=== PATIENT | male | born 1975 | race Caucasian/White ===

== ENCOUNTER 2017-03-22 12:02 | Inpatient (IN) | payer OTHER ==
[2017-03-22] MEDS ORDERED: ACETAMINOPHEN 325 MG TABLET (FP) PO ONE (12:28)
[2017-03-22] MEDS ORDERED: SODIUM CHLORIDE 1,000 ML IV STA (12:28)
--- NOTE | 2017-03-22 12:35 | PDOC ---
History of Present Illness - General Chief Complaint: SIRS, Suspected/Possible Stated Complaint: LAB VARIANCE Time Seen by Provider: 03/22/17 12:10 History Source: Patient - History of Present Illness Timing/Duration: other (2 days ago) Associated Symptoms: reports: fever/chills, malaise, weakness. denies: chest pain, cough, diaphoresis, headaches, nausea/vomiting, rash, shortness of breath Past History - Past Medical History Allergies/Adverse Reactions: Allergies Allergy/AdvReac Type Severity Reaction Status Date / Time piperacillin sodium Allergy Verified 03/22/17 12:06 [From Zosyn] tazobactam sodium Allergy Verified 03/22/17 12:06 [From Zosyn] Home Medications: Ambulatory Orders Levothyroxine [Synthroid -] 125 mcg PO DAILY 03/22/17 Thyroid Disease: Yes - Psycho/Social/Smoking Cessation Hx Anxiety: No Suicidal Ideation: No Smoking History: Never smoked Have you smoked in the past 12 months: No Number of Cigarettes Smoked Daily: 0 Hx Alcohol Use: No Drug/Substance Use Hx: No Substance Use Type: None Hx Substance Use Treatment: No Review of Systems - Review of Systems Constitutional: Yes: Chills, Fever, Malaise HEENTM: No: Difficulty Swallowing Respiratory: No: Shortness of Breath Cardiac (ROS): No: Chest Pain ABD/GI: No: Diarrhea, Nausea, Vomiting : No: Dysuria Neurological: No: Headache, Dizziness *Physical Exam - Vital Signs Last Vital Signs Temp Pulse Resp BP Pulse Ox 99.0 F 126 H 20 152/97 99 03/22/17 12:03 03/22/17 12:03 03/22/17 12:03 03/22/17 12:03 03/22/17 12:03 - Physical Exam General Appearance: Yes: Appropriately Dressed. No: Apparent Distress HEENT: positive: Normal ENT Inspection, Normal Voice, Pharynx Normal. negative : Scleral Icterus (R), Scleral Icterus (L) Neck: positive: Supple. negative: Lymphadenopathy (R), Lymphadenopathy (L) Respiratory/Chest: positive: Normal Breath Sounds. negative: Respiratory Distress Cardiovascular: positive: Regular Rate, S1, S2 Gastrointestinal/Abdominal: positive: Soft. negative: Tender Musculoskeletal: negative: CVA Tenderness Extremity: positive: Normal Inspection Integumentary: positive: Dry, Warm Neurologic: positive: Fully Oriented, Alert, Normal Mood/Affect Heart Score/ECG Review - ECG Intrepretation Comment:: 03/22/17 14:21 sinus tach @ 107bpm ED Treatment Course - LABORATORY CBC & Chemistry Diagram: 03/22/17 12:30 03/22/17 12:30 - RADIOLOGY Radiology Studies Ordered: Category Date Time Status CHEST X-RAY PORTABLE* [RAD] Stat Radiology 03/22/17 12:27 Ordered Medical Decision Making - Medical Decision Making 03/22/17 12:32 41-year-old male history of hyperthyroidism (on levothyroxine now, taken off methimazole 2/ pancytopenia/agranulocytosis, f/u with outside print binding and finishing worker- Dr Reaves [phone]), presents with malaise with generalized weakness and low -grade temperature 2 days. States son and daughter with similar symptoms at home that is resolving. Patient denies any body aches, cough, sore throat, ear pain, headache, dizziness, neck stiffness, photophobia, abdominal pain, GI symptoms, fever or chills. No recent travel. Has not taken anything for symptoms See exam Possibly viral syndrome A bit early for influenza though not impossible Tachy to 120s w/ low grade fever and maintaining BP, doubt septic at this time as well maximilian otherwise -tylenol -IVF -labs -CXR -reassess 03/22/17 12:50 03/22/17 13:07 03/22/17 13:16 03/22/17 13:16 Pt significantly pancytopenic w/ wbc of 2, hgb of 6.8 and plts in the 80s w/ elevated LFTs. Of note, patient was admitted for similar clinical picture 2013 and was evaluated by endocrine who thought methimazole was causing pancytopenia at that time. Pt was taken of methimazole, tx w/ broad spectrum IV abx, steroids and had significant low B12 levels repleted. Patient underwent imaging including ultrasound, which only showed enlarged spleen. Heme was c/s at time and delonte recs to replete B12 levels. Patient currently on levothyroxine. I contacted patient's outside print binding and finishing worker, Dr. Reaves at number given and left message for M.D. to call back. At this time, will call in -house print binding and finishing worker, ID and oncology for recommendations and admit. 03/22/17 13:19 03/22/17 13:45 At this time pt c/o chills. Based on chart review and ID recs in the past for similar clinic picture, will give levaquin/doxy/aztrenam for neutropenic fever given drug allergies. Of note all blood/peripheral cxs all negative in 201303/22/17 14:16 Case d/w Dr Chakraborty of oncology, recommending additional labs and crowell scan r/o malignancy. Also recommends transfusing pt 2 units of PRBCs. Will come see pt in the ED 03/22/17 14:21 Case d/w Dr Moctezuma of endocrine and made aware of thyroid tests-TSH 0.31, Free T4 1.55, no recommendation at this time, will follow as consult. Dr Reaves' s CASE ASSEMBLER also made aware of admission. 03/22/17 14:25 03/22/17 14:55 03/22/17 14:55 03/22/17 15:09 Dr Chakraborty now at bedside and made recs in consult note including additional labs and colonoscopy (pt has fmhx of colon ca). States pt will m/l need a bone marrow bx if inhouse w/u does not reveal diagnosis. States Dr Cary will see pt inhouse on Friday. Will inform admitting team as [facility] orders/notes 03/22/17 15:26 Dr Reaves returned call and informed of pt's condition. States pt was treated w / radioactive iodine and then subsequently put on levothyroxine. Agrees w/ w/u and admission. 03/22/17 15:47 Pending callback from hospitalist to admit pt. ID has not returned call as of yet 03/22/17 16:34 Pt admitted to hospitalist service. At this time, ID has not returned call. 03/22/17 16:35 *DC/Admit/Observation/Transfer Diagnosis at time of Disposition: Pancytopenia with fever - Discharge Dispostion Condition at time of disposition: Fair Admit: Yes - Referrals Referrals: Venu Florentino [Primary Care Provider] -
[2017-03-22] MEDS ORDERED: ACETAMINOPHEN 325 MG TABLET (FP) ONE (12:50)
[2017-03-22 12:52] LABS: BASOPHIL 0.4 % (0-2.0); EOSINOPHIL 0.8 % (0-4.5); MCH 38.1 pg (25.7-33.7); MCHC 35.8 g/dl (32.0-35.9); MEAN CELL VOLUME 106.5 fl (80-96); MEAN PLT VOLUME 9.6 fl (7.5-11.1); NEUTROPHILS 74.2 % (42.8-82.8); RDW 15.4 % (11.9-15.9)
[2017-03-22 13:06] LABS: ALBUMIN 4.7 g/dl (3.4-5.0); ANION GAP 12 (8-16); BILIRUBIN,TOTAL 3.9 mg/dL (0.2-1.0); CALCIUM 8.5 mg/dL (8.5-10.1); CO2 26 mmol/L (21-32); CREATININE 1.1 mg/dL (0.7-1.3); GLUCOSE,RANDOM 125 mg/dL (74-106); SGPT/ALT 120 U/L (12-78); TOT PROT 7.2 g/dl (6.4-8.2)
[2017-03-22 13:07] LABS: ALK PHOS 43 U/L (45-117)
[2017-03-22 13:08] LABS: SGOT/AST 325 U/L (15-37)
[2017-03-22 13:18] LABS: FREE T4 1.55 ng/dl (0.76-1.16); THYROID STIMULATING HORMONE 0.44 uIU/ml (0.358-3.74)
[2017-03-22 13:19] LABS: HIV 1 & 2 AB NEGATIVE; HIV 1 AGp24 NEGATIVE
[2017-03-22] MEDS ORDERED: LEVOFLOXACIN 750 MG IVPB 150 ML IVPB ONE ×3 (13:47→13:54)
[2017-03-22] MEDS ORDERED: DOXYCYCLINE INJECTION 100 MG in DEXTROSE 5%-WATER - 100 ML IVPB ONE (13:50)
[2017-03-22] MEDS ORDERED: AZTREONAM 2 GM in DEXTROSE 5%-WATER - 100 ML IV ONE (13:50)
[2017-03-22] MEDS ORDERED: DOXYCYCLINE HYCLATE 100 MG VIAL ONE (14:01)
[2017-03-22 14:51] LABS: ANISOCYTOSIS 3+; HYPOCHROMIA 2+; MACROCYTOSIS 1+; MICROCYTOSIS 2+; PLATELET COMMENT2 NO CLOTTING DETECTED; PLATELET COUNT 85 K/MM3 (134-434); TEAR DROP CELLS 2+
[2017-03-22 15:21] LABS: INR 1.19 (0.82-1.09); PROTHROMBIN TIME (PATIENT) 13.1 SEC (9.98-11.88)
--- NOTE | 2017-03-22 16:58 | HP ---
CHIEF COMPLAINT: Malaise, generalized weakness and low grade temps x 2 days. 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 Pt was treated w/ radioactive iodine and then subsequently put on levothyroxine. He follows Dr. Reaves as an outpatient. He was recently on methimazole but it was discontinued for pancytopenia and agranulocytosis. He presents to the ED with malaise with generalized weakness and low-grade temperature 2 days. States son and daughter with similar symptoms at home that is resolving. Patient denies any body aches, cough, sore throat, ear pain, headache, dizziness , neck stiffness, photophobia, abdominal pain, GI symptoms, fever or chills. No recent travel. ER course was notable for: (1) WBC 2.0, hmg 6.8, hct 18.9, platelets 85, bili 3.9, AST 325, ALT 120, LD 7626, TSH 0.31 (2) 2 units of PRBC ordered (3) Recent Travel: denies PAST MEDICAL HISTORY: hyperthyroidism PAST SURGICAL HISTORY: Social History: Smoking: Alcohol: Drugs: Family History: Allergies piperacillin sodium [From Zosyn] Allergy (Verified 03/22/17 12:06) tazobactam sodium [From Zosyn] Allergy (Verified 03/22/17 12:06) HOME MEDICATIONS: Home Medications Medication Instructions Recorded Levothyroxine [Synthroid -] 125 mcg PO DAILY 03/22/17 REVIEW OF SYSTEMS CONSTITUTIONAL: Absent: diaphoresis, generalized weakness, malaise, loss of appetite, weight change HEENT: Absent: rhinorrhea, nasal congestion, throat pain, throat swelling, difficulty swallowing, mouth swelling, ear pain, eye pain, visual changes CARDIOVASCULAR: Absent: chest pain, syncope, palpitations, irregular heart rate, lightheadedness , peripheral edema RESPIRATORY: Absent: cough, shortness of breath, dyspnea with exertion, orthopnea, wheezing, stridor, hemoptysis GASTROINTESTINAL: Absent: abdominal pain, abdominal distension, nausea, vomiting, diarrhea, constipation, melena, hematochezia GENITOURINARY: Absent: dysuria, frequency, urgency, hesitancy, hematuria, flank pain, genital pain MUSCULOSKELETAL: Absent: myalgia, arthralgia, joint swelling, back pain, neck pain SKIN: Absent: rash, itching, pallor HEMATOLOGIC/IMMUNOLOGIC: Absent: easy bleeding, easy bruising, lymphadenopathy, frequent infections ENDOCRINE: Absent: unexplained weight gain, unexplained weight loss, heat intolerance, cold intolerance NEUROLOGIC: Absent: headache, focal weakness or paresthesias, dizziness, unsteady gait, seizure, mental status changes, bladder or bowel incontinence PSYCHIATRIC: Absent: anxiety, depression, suicidal or homicidal ideation, hallucinations. PHYSICAL EXAMINATION Vital Signs - 24 hr 03/22/17 03/22/17 03/22/17 12:03 13:01 13:34 Temperature 99.0 F Pulse Rate 126 H 112 H Pulse Rate [ 112 H Apical] Respiratory 20 16 Rate Blood Pressure 152/97 Blood Pressure 130/79 [Right] O2 Sat by Pulse 99 96 96 Oximetry (%) GENERAL: Awake, alert, and fully oriented, in no acute distress. HEAD: Normal with no signs of trauma. EYES: Pupils equal, round and reactive to light, extraocular movements intact, sclera anicteric, conjunctiva clear. No lid lag. EARS, NOSE, THROAT: Ears normal, nares patent, oropharynx clear without exudates. Moist mucous membranes. NECK: Normal range of motion, supple without lymphadenopathy, JVD, or masses. LUNGS: Breath sounds equal, clear to auscultation bilaterally. No wheezes, and no crackles. No accessory muscle use. HEART: Regular rate and rhythm, normal S1 and S2 without murmur, rub or gallop. ABDOMEN: Soft, nontender, not distended, normoactive bowel sounds, no guarding, no rebound, no masses. No hepatomegaly or splenomegaly. MUSCULOSKELETAL: Normal range of motion at all joints. No bony deformities or tenderness. No CVA tenderness. UPPER EXTREMITIES: 2+ pulses, warm, well-perfused. No cyanosis. No clubbing. No peripheral edema. LOWER EXTREMITIES: 2+ pulses, warm, well-perfused. No calf tenderness. No peripheral edema. NEUROLOGICAL: Normal speech. Normal gait. PSYCHIATRIC: Cooperative. Good eye contact. Appropriate mood and affect. SKIN: Warm, dry, normal turgor, no rashes or lesions noted, normal capillary refill. Laboratory Results - last 24 hr 03/22/17 03/22/17 03/22/17 12:30 12:30 12:30 WBC 2.0 L RBC 1.78 L D Hgb 6.8 L* D Hct 18.9 L D MCV 106.5 H MCH 38.1 H MCHC 35.8 RDW 15.4 D Plt Count 85 L D MPV 9.6 D Neutrophils % 74.2 D Lymphocytes % 21.9 D Monocytes % 2.7 L Eosinophils % 0.8 D Basophils % 0.4 D Hypochromia 2+ Platelet Comment No clotting detected Anisocytosis 3+ Microcytosis 2+ Macrocytosis 1+ Tear Drop Cells 2+ Fragmented RBCs Few Retic Count INR Fibrinogen Sodium 138 Potassium 4.5 D Chloride 100 Carbon Dioxide 26 Anion Gap 12 BUN 9 D Creatinine 1.1 D Creat Clearance w eGFR > 60 Random Glucose 125 H D Lactic Acid Calcium 8.5 Total Bilirubin 3.9 H D AST 325 H D ALT 120 H D Alkaline Phosphatase 43 L D LD Total Total Protein 7.2 D Albumin 4.7 D TSH 0.44 Cancelled Free T4 1.55 H HIV 1&2 Antibody Screen HIV P24 Antigen Blood Type Antibody Screen Crossmatch Spec Expiration Date 03/22/17 03/22/17 03/22/17 12:30 12:30 12:30 WBC RBC Hgb Hct MCV MCH MCHC RDW Plt Count MPV Neutrophils % Lymphocytes % Monocytes % Eosinophils % Basophils % Hypochromia Platelet Comment Anisocytosis Microcytosis Macrocytosis Tear Drop Cells Fragmented RBCs Retic Count 1.60 H INR Fibrinogen Sodium Potassium Chloride Carbon Dioxide Anion Gap BUN Creatinine Creat Clearance w eGFR Random Glucose Lactic Acid Calcium Total Bilirubin AST ALT Alkaline Phosphatase LD Total Total Protein Albumin TSH Free T4 Cancelled HIV 1&2 Antibody Screen Negative HIV P24 Antigen Negative Blood Type Antibody Screen Crossmatch Spec Expiration Date 03/22/17 03/22/17 03/22/17 12:35 13:30 13:30 WBC RBC Hgb Hct MCV MCH MCHC RDW Plt Count MPV Neutrophils % Lymphocytes % Monocytes % Eosinophils % Basophils % Hypochromia Platelet Comment Anisocytosis Microcytosis Macrocytosis Tear Drop Cells Fragmented RBCs Retic Count INR Fibrinogen Sodium Potassium Chloride Carbon Dioxide Anion Gap BUN Creatinine Creat Clearance w eGFR Random Glucose Lactic Acid 0.7 Calcium Total Bilirubin AST ALT Alkaline Phosphatase LD Total Total Protein Albumin TSH 0.31 L D Free T4 HIV 1&2 Antibody Screen HIV P24 Antigen Blood Type B POSITIVE Antibody Screen Negative Crossmatch See Detail Spec Expiration Date 09/03/3003/22/17 03/22/17 14:50 14:50 14:50 WBC RBC Hgb Hct MCV MCH MCHC RDW Plt Count MPV Neutrophils % Lymphocytes % Monocytes % Eosinophils % Basophils % Hypochromia Platelet Comment Anisocytosis Microcytosis Macrocytosis Tear Drop Cells Fragmented RBCs Retic Count INR 1.19 H Fibrinogen 223.0 L Sodium Potassium Chloride Carbon Dioxide Anion Gap BUN Creatinine Creat Clearance w eGFR Random Glucose Lactic Acid Calcium Total Bilirubin AST ALT Alkaline Phosphatase LD Total 7626 H Total Protein Albumin TSH Free T4 HIV 1&2 Antibody Screen HIV P24 Antigen Blood Type Antibody Screen Crossmatch Spec Expiration Date 03/22/17 15:21 WBC RBC Hgb Hct MCV MCH MCHC RDW Plt Count MPV Neutrophils % Lymphocytes % Monocytes % Eosinophils % Basophils % Hypochromia Platelet Comment Anisocytosis Microcytosis Macrocytosis Tear Drop Cells Fragmented RBCs Retic Count INR Fibrinogen Sodium Potassium Chloride Carbon Dioxide Anion Gap BUN Creatinine Creat Clearance w eGFR Random Glucose Lactic Acid Calcium Total Bilirubin AST ALT Alkaline Phosphatase LD Total Total Protein Albumin TSH Free T4 HIV 1&2 Antibody Screen HIV P24 Antigen Blood Type B POSITIVE Antibody Screen Cancelled Crossmatch Spec Expiration Date Cancelled ASSESSMENT/PLAN: Patient is a 41 year old male with a significant past medical history of hyperthyroidism. Pt was treated w/ radioactive iodine and then subsequently put on levothyroxine. He follows Dr. Reaves as an outpatient. He was recently on methimazole but it was discontinued for pancytopenia and agranulocytosis. He presents to the ED with malaise with generalized weakness and low-grade temperature 2 days. States son and daughter with similar symptoms at home that is resolving. Patient was admitted for similar clinical picture in 2013 and was evaluated by endocrine who thought methimazole was causing pancytopenia at that time. Methiamazonle was d/c and pt was started on Synthroid. Patient denies any body aches, cough, sore throat, ear pain, headache, dizziness , neck stiffness, photophobia, abdominal pain, GI symptoms, fever or chills. No recent travel. Chest xray: no acute pathology Hematology: Neutropenia/Pancytopenia/Anemia - unknown etiology A/P: Patient significantly pancytopenic with WBC of 2, hmg of 6.8 and platelets of 80 Given levaquin/doxy/aztrenam for neutropenic fever given drug allergies of Zosyn Blood cultures, urine cultures ID consulted for further antibiotic therapy Oncology/hematology consulted B12, folate levels, tibc, vane, hep panal, cmv, blood parasites, babesia and anaplasma ordered Neutropenic precautions, bleeding precautions 2 units of prbc ordered - 1 unit of prbc started infusing at 7p, 2nd unit ordered, will repeat CBC in a.m. Chest ct ordered, abdomen and pelvic ct pending GI: Elevated Liver Enzymes A/P: CT scan of abd pending Hepatitis panel F.E.N. Fluids: NS @ 100cc/hr Electrolytes: monitor Nutrition: neutropenic diet Prophylaxis: GI: deferred DVT: low h/h, no anticoag, SCDs Visit type - Emergency Visit Emergency Visit: Yes ED Registration Date: 03/22/17 Care time: The patient presented to the Emergency Department on the above date and was hospitalized for further evaluation of their emergent condition. - New Patient This patient is new to me today: Yes Date on this admission: 03/23/17 - Critical Care Critical Care patient: No
[2017-03-22 20:14] LABS: INR 1.01 (0.82-1.09); PROTHROMBIN TIME (PATIENT) 11.1 SEC (9.98-11.88)
[2017-03-22 20:41] VITALS: BMI 28.9
[2017-03-22 22:31] LABS: PH,URINE 5.5 (5.0-8.0); URINE APPEARANCE CLEAR; URINE BILIRUBIN NEGATIVE (NEGATIVE); URINE BLOOD 1+ (NEGATIVE); URINE COLOR LT. YELLOW; URINE GLUCOSE (UA) NEGATIVE (NEGATIVE); URINE KETONE NEGATIVE (NEGATIVE); URINE LEUK ESTERASE NEGATIVE (NEGATIVE); URINE NITRITE NEGATIVE (NEGATIVE); URINE PROTEIN NEGATIVE (NEGATIVE); URINE UROBILINOGEN 4.0 E.U/dl mg/dL (0.2-1.0)
[2017-03-22 22:43] LABS: URINE BACTERIA FEW /hpf (NONE SEEN); URINE RBC <1 /hpf (0-3); URINE WBC 1 /hpf (3-5)
[2017-03-23 01:07] LABS: MCH 37.8 pg (25.7-33.7); MCHC 35.9 g/dl (32.0-35.9); MEAN CELL VOLUME 105.2 fl (80-96); MEAN PLT VOLUME 11.6 fl (7.5-11.1); PLATELET COUNT 76 K/MM3 (134-434); RDW 19.3 % (11.9-15.9)
[2017-03-23 01:12] LABS: WHITE BLOOD COUNT 1.2 K/mm3 (4.0-10.0)
[2017-03-23 01:33] LABS: ALBUMIN 3.8 g/dl (3.4-5.0); ANION GAP 7 (8-16); BILIRUBIN,TOTAL 3.4 mg/dL (0.2-1.0); CALCIUM 7.9 mg/dL (8.5-10.1); CO2 29 mmol/L (21-32); GLUCOSE,RANDOM 100 mg/dL (74-106); SGPT/ALT 98 U/L (12-78)
[2017-03-23 01:34] LABS: ALK PHOS 36 U/L (45-117)
[2017-03-23 01:35] LABS: MAGNESIUM 1.9 mg/dL (1.8-2.4); SGOT/AST 273 U/L (15-37)
[2017-03-23 01:52] LABS: PLATELET ESTIMATE MOD DECREASED (NORMAL); TOTAL CELLS COUNTED 100
[2017-03-23 02:33] LABS: FERRITIN 202.268 ng/ml (16.4-293.9)
[2017-03-23 05:33] LABS: BASOPHIL 0.3 % (0-2.0); EOSINOPHIL 1.5 % (0-4.5); MCH 36.7 pg (25.7-33.7); MCHC 35.9 g/dl (32.0-35.9); MEAN CELL VOLUME 102.1 fl (80-96); MEAN PLT VOLUME 10.1 fl (7.5-11.1); NEUTROPHILS 66.7 % (42.8-82.8); PLATELET COUNT 63 K/MM3 (134-434); RDW 22.7 % (11.9-15.9)
[2017-03-23 05:36] LABS: WHITE BLOOD COUNT 1.3 K/mm3 (4.0-10.0)
[2017-03-23 05:47] LABS: PLATELET ESTIMATE MOD DECREASED (NORMAL)
[2017-03-23] MEDS ORDERED: LEVOTHYROXINE NA 125 MCG TABLET (FP) PO SCH (07:00)
--- NOTE | 2017-03-23 09:48 | EKG ---
Test Reason : Blood Pressure : / mmHG Vent. Rate : 107 BPM Atrial Rate : 107 BPM P-R Int : 138 ms QRS Dur : 082 ms QT Int : 356 ms P-R-T Axes : 046 023 021 degrees QTc Int : 475 ms SINUS TACHYCARDIA NONSPECIFIC T WAVE ABNORMALITY ABNORMAL ECG WHEN COMPARED WITH ECG OF 23-JAN-2014 19:52, NONSPECIFIC T WAVE ABNORMALITY NOW EVIDENT IN ANTEROLATERAL LEADS Confirmed by MD NATHALIA, RAMOS ([id number]) on 03/23/2017 9:48:26 AM Referred By: Confirmed By:RAMOS SLOAN MD
[2017-03-23] MEDS ORDERED: LEVOFLOXACIN 750 MG IVPB 150 ML IVPB ONE (10:00)
--- NOTE | 2017-03-23 11:35 | PN ---
Progress Note (short form) - Note Progress Note: Subjective: The patient was seen and examined at the bedside, he reports he came to the ED for weakness and fever, but reports his tmax was 99 at home. He does not report having a temperature higher than that prior to arrival. He reports a decrease in appetite over 2 weeks and 10lb weight loss over 2 weeks. ANC: 867 Current Medications Generic Name Dose Route Start Last Admin Trade Name Freq PRN Reason Stop Dose Admin Cyanocobalamin 1,000 mcg 03/23/17 12:00 Vitamin B12 - PO DAILY AMANDA Levothyroxine Sodium 125 mcg 03/23/17 07:00 03/23/17 06:33 Synthroid - PO 125 mcg DAILY@0700 AMANDA Administration Objective: Vital Signs Period Temp Pulse Resp BP Sys/[place] Pulse Ox Last 24 Hr 98.2 F-99.0 F 104-126 14-20 126-152/76-97 96-100 Physical Exam: General: NAD, A&Ox3, jaundice HEENT: Right eye ptosis and strabismus Lungs: CTA bilaterally Heart: RRR, S1S2, +murmur Abd: Soft, non-tender, non-distended, Normoactive bowel sounds Ext: Warm, well-perfused. 2+ DP/PT bilaterally Lymph: No lymphadenopathy noted CBCD WBC 1.3 K/mm3 (4.0-10.0) L* 03/23/17 05:17 RBC 1.97 M/mm3 (4.00-5.60) L 03/23/17 05:17 Hgb 7.2 GM/dL (11.7-16.9) L D 03/23/17 05:17 Hct 20.1 % (35.4-49) L D 03/23/17 05:17 MCV 102.1 fl (80-96) H 03/23/17 05:17 MCHC 35.9 g/dl (32.0-35.9) 03/23/17 05:17 RDW 22.7 % (11.9-15.9) H D 03/23/17 05:17 Plt Count 63 K/MM3 (134-434) L 03/23/17 05:17 MPV 10.1 fl (7.5-11.1) D 03/23/17 05:17 CMP Sodium 139 mmol/L (136-145) 03/23/17 00:20 Potassium 3.6 mmol/L (3.5-5.1) 03/23/17 00:20 Chloride 103 mmol/L (98-107) 03/23/17 00:20 Carbon Dioxide 29 mmol/L (21-32) 03/23/17 00:20 Anion Gap 7 (8-16) L 03/23/17 00:20 BUN 8 mg/dL (7-18) 03/23/17 00:20 Creatinine 1.0 mg/dL (0.7-1.3) 03/23/17 00:20 Creat Clearance w eGFR > 60 (>60) 03/23/17 00:20 Random Glucose 100 mg/dL (74-106) 03/23/17 00:20 Calcium 7.9 mg/dL (8.5-10.1) L 03/23/17 00:20 Total Bilirubin 3.4 mg/dL (0.2-1.0) H 03/23/17 00:20 AST 273 U/L (15-37) H 03/23/17 00:20 ALT 98 U/L (12-78) H 03/23/17 00:20 Alkaline Phosphatase 36 U/L (45-117) L 03/23/17 00:20 Total Protein 6.0 g/dl (6.4-8.2) L 03/23/17 00:20 Albumin 3.8 g/dl (3.4-5.0) 03/23/17 00:20 Assessment: This is a 41 year old male with PMHx of hyperthyroidism who presented to the ED with weakness, decrease appetite, 10 lb weight loss in 2 weeks. Plan: 1) Hematology: Pancytopenia - Appears patient was here in 2013 with pancytopenia and it was believed to be from Methimazole at that time - Will likely need bone marrow study - Macrocytic anemia 2/2 b12 deficiency - Start Cyanocobalamin 1000mcg IM daily x7 days - Hgb 7.2 s/p 2 u PRBC - Will order 1u PRBC and monitor H/H response - F/u iron studies - Appreciate hematology consult Moderate neutropenia - Idiopathic vs. B12 deficiency vs. infectious - Patient reports child had fever last week which lasted about 2 days - B12 deficiency diagnosed as above - F/u cultures, no evidence of infection now, afebrile, however did receive Levaquin, Doxy, and Aztreonam in the ED - F/u ID consult for possible recommendations re: abx. Received Levaquin this AM. Will hold off on ordering abx for now given the patient has been afebrile and he reports his max temp at home was 99 2) Endocrine: Hyperthyroidism - S/p radioactive iodine, now on synthroid (decrease to 112mcg daily) - TSH 0.31 - T4 within normal range, however appears out of range from our lab standards - Appreciate endocrinology consult 3) GI: Jaundice, elevated bilirubin - F/u liver ultrasound - F/u GI consult 4) F/E/N: - Regular diet - Monitor electrolytes 5) Prophylaxis: - Hold off on chemical DVT prophylaxis given anemia - OOB ambulating 6) Dispo: - Requires continued inpatient care CODE STATUS: FULL CODE Visit type - Emergency Visit Emergency Visit: Yes ED Registration Date: 03/22/17 Care time: The patient presented to the Emergency Department on the above date and was hospitalized for further evaluation of their emergent condition. - New Patient This patient is new to me today: Yes Date on this admission: 03/23/17 - Critical Care Critical Care patient: No
[2017-03-23] MEDS ORDERED: CYANOCOBALAMIN 1,000 MCG TABLET (FP) PO SCH (12:00)
--- NOTE | 2017-03-23 15:44 | PN ---
Progress Note (short form) - Note Progress Note: ID Consult dictated 41 y/o HIV (-) male admitted with pancytopenia. Admitted in 2013 with same; felt to have drug-induced pancytopenia secondary to methimazole. Now with weakness, anorexia, wt loss. No documented fever. + abnormal LFTs with clinical jaundice Denies tick exposure or recent febrile illness Cultures, serologies obtained Observe off antibiotics as long as he remains afebrile Hem/Onc evaluation for bone marrow bx
[2017-03-23] MEDS: CYANOCOBALAMIN (VITAMIN B-12) 1000 MCG/1 ML VIAL IM SCH (18:09)
--- NOTE | 2017-03-23 18:27 | CONSULT ---
Consult Consult Specialty:: endocrine Referred by:: maxwell andres NP Reason for Consultation:: hypothyroidism sp buchanan - History of Present Illness Chief Complaint: weakness,fever History of Present Illness: 41 y male pmh hyperthyroidism,treated with methimazole,and developed pancytopenia in past,subsequently given buchanan 7mcui in 2014,with resulting hypothyroid state,now on synthroid hrt,has had recent fever and flue like syndrome,found to have recurrent pancytopenia which prompted admission. - History Source History Provided By: Patient - Past Medical History Endocrine: Yes: Hyperthyroidism. No: [place]'s Disease, [place]'s Disease, Diabetes Insipidus, Diabetes Mellitus, Hyperparathyroidism, Hypothyroidism, Osteopenia, SIADH, Other Additional Medical History: Hyperthyroid - Past Surgical History Past Surgical History: Yes: Arthrosocopy. No: None, AAA Repair, AICD, Amputation, Appendectomy, AV Fistula/Graft, Bariatric Surgery, Breast Biopsy, Bypass, CABG, Carotid Endarterectomy, Cataract Removal, Cholecystectomy, Colectomy, Colonoscopy, Colostomy, Craniotomy, , Cystectomy, Hernia Repair, Hysterectomy, Ileal Conduit, Ileosotomy, Joint Replacement, Kidney Transplant, Laminectomy, Liver Transplant, Mastectomy, Nephrectomy, Oopherectomy , Orchiectomy, Permanent Pacemaker, Prostatectomy, Splenectomy, Stent, Thoracotomy, TURP, Tonsillectomy, Tubal Ligation, Upper Endoscopy, Valve Replacement, Vasectomy, Vein Stripping/Ligation - Alcohol/Substance Use Hx Alcohol Use: No - Smoking History Smoking history: Never smoked Have you smoked in the past 12 months: No Aproximately how many cigarettes per day: 0 Home Medications - Allergies Allergies/Adverse Reactions: Allergies Allergy/AdvReac Type Severity Reaction Status Date / Time piperacillin sodium Allergy Verified 03/22/17 12:06 [From Zosyn] tazobactam sodium Allergy Verified 03/22/17 12:06 [From Zosyn] - Home Medications Home Medications: Ambulatory Orders Levothyroxine [Synthroid -] 125 mcg PO DAILY 03/22/17 Family Disease History - Family Disease History Family Disease History: Heart Disease: Father ([place] x 2) Review of Systems - Review of Systems Constitutional: reports: Lethargy, Weakness Eyes: reports: Other (exopthalmia) HENT: reports: No Symptoms Neck: reports: No Symptoms Cardiovascular: reports: No Symptoms Respiratory: reports: No Symptoms Gastrointestinal: reports: No Symptoms Genitourinary: reports: No Symptoms Breasts: reports: No Symptoms Reported Musculoskeletal: reports: No Symptoms Integumentary: reports: No Symptoms Neurological: reports: No Symptoms Endocrine: reports: No Symptoms Physical Exam Vital Signs: Vital Signs Temperature 98.8 F 03/23/17 14:26 Pulse Rate 108 H 03/23/17 14:26 Respiratory Rate 18 03/23/17 14:26 Blood Pressure 136/82 03/23/17 14:26 O2 Sat by Pulse Oximetry (%) 97 03/23/17 09:00 Constitutional: Yes: Calm Eyes: Yes: EOM Intact, Other HENT: Yes: Normocephalic Neck: Yes: Trachea Midline Cardiovascular: Yes: Regular Rate and Rhythm Respiratory: Yes: WNL Gastrointestinal: Yes: WNL ...Rectal Exam: Yes: WNL Renal/: Yes: WNL Breast(s): Yes: WNL Musculoskeletal: Yes: WNL Extremities: Yes: WNL Edema: No Integumentary: Yes: WNL Neurological: Yes: Alert, Oriented Labs: CBC, BMP 03/23/17 05:17 03/23/17 00:20 Problem List - Problems (1) Pancytopenia with fever Code(s): D61.818 - OTHER PANCYTOPENIA R50.81 - FEVER PRESENTING WITH CONDITIONS CLASSIFIED ELSEWHERE (2) Abnormal LFTs (liver function tests) Code(s): R79.89 - OTHER SPECIFIED ABNORMAL FINDINGS OF BLOOD CHEMISTRY (3) Flu-like symptoms Code(s): R68.89 - OTHER GENERAL SYMPTOMS AND SIGNS (4) Hyperthyroidism Code(s): E05.90 - THYROTOXICOSIS, UNSP WITHOUT THYROTOXIC CRISIS OR STORM Assessment/Plan Current Active Problems hyperthyroidism,sp buchanan,dose adjustment needed Pancytopenia with fever (Acute) Current Active Problems flue like illness Abnormal Lab Results 03/22/17 03/22/17 03/22/17 13:30 15:21 21:10 WBC RBC Hgb Hct MCV MCH RDW Plt Count MPV Monocytes % (Manual) Anion Gap Calcium Total Bilirubin AST ALT Alkaline Phosphatase Total Protein Vitamin B12 Urine Blood 1+ H Crossmatch See Detail See Detail 03/23/17 03/23/17 03/23/17 00:20 00:20 00:20 WBC 1.2 L* D RBC 1.65 L Hgb 6.2 L* Hct 17.3 L MCV 105.2 H MCH 37.8 H RDW 19.3 H D Plt Count 76 L MPV 11.6 H D Monocytes % (Manual) 1 L Anion Gap 7 L Calcium 7.9 L Total Bilirubin 3.4 H AST 273 H ALT 98 H Alkaline Phosphatase 36 L Total Protein 6.0 L Vitamin B12 64 L Urine Blood Crossmatch 03/23/17 05:17 WBC 1.3 L* RBC 1.97 L Hgb 7.2 L D Hct 20.1 L D MCV 102.1 H MCH 36.7 H RDW 22.7 H D Plt Count 63 L MPV Monocytes % (Manual) Anion Gap Calcium Total Bilirubin AST ALT Alkaline Phosphatase Total Protein Vitamin B12 Urine Blood Crossmatch Laboratory Tests 01/24/14 03/22/17 03/22/17 20:00 12:30 13:30 TSH < 0.03 L* 0.31 L D Free T4 2.28 H* 1.55 H plan: decrease synthoid 112mcg daily
--- NOTE | 2017-03-23 19:22 | CONS ---
DATE OF CONSULTATION: DATE OF DICTATION: 03/23/2017 The patient is a 41-year-old male evaluated for pancytopenia. He presents with complaints of worsening generalized weakness, anorexia, and 10-pound weight loss. He had subjective fever at home, reports his highest temperature was 99. He presented to the emergency room, where he was found to be pancytopenic. In addition, he was noted to have elevated liver enzymes and clinical jaundice. Cultures were obtained. He was empirically treated with Azactam, Levaquin, and doxycycline for febrile neutropenia (he is allergic to ZOSYN). He has had no documented fever while in the hospital. He denies any recent febrile illness. He has been in contact with small children who have had respiratory tract infections. No recent travel. He denies any tick bites. 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 No rash. His HIV test done on and is negative. The patient was hospitalized at [facility] [place] in 2013 with pancytopenia. At that time, he was felt to have a drug-induced pancytopenia secondary to methimazole. He had received radiation therapy and was placed on Synthroid for thyroid disease. It is unclear whether he has had any blood count in the interim. He is unaware of any recent blood work nor was he aware of being informed of an abnormal CBC. Past medical history as above. Allergies to ZOSYN. MEDICATIONS: Synthroid. LABORATORY DATA: White count 1.3, 66 neutrophils, 27 lymphocytes, 3 monocytes. ANC 850. Hematocrit 20.1, platelet count 63, BUN 8, creatinine 1.0, total bilirubin 3.4, alkaline phosphatase 36, AST 273, ALT 98. Urinalysis: 1 white cell. CAT scan of the chest negative for infiltrate, no adenopathy. CAT scan of the abdomen and pelvis: Enlarged spleen. Chest x-ray negative. PHYSICAL EXAMINATION: General: He is awake and alert. He is not acutely toxic appearing. Vital Signs: Temperature 98.8. Blood pressure 136/82. Pulse 108. Respirations 18 per minute. ENT: Sclerae anicteric. Oropharynx negative. Neck: Supple. No palpable nodes. Heart Sounds: S1, S2. Lungs: Clear. Abdomen: Soft. No tenderness elicited. No palpable liver or spleen. Extremities: Negative for edema. IMPRESSION: A 41-year-old male, human immunodeficiency virus negative, admitted with pancytopenia, now with anorexia, weight loss, and weakness. No documented fever. Patient with abnormal liver enzymes, clinical jaundice, and splenomegaly. Etiology of pancytopenia unclear, likely requires a bone marrow aspirate. At the present time, he is afebrile without a clear infectious focus, as long as he remains afebrile will observe off antibiotic therapy. Cultures and tick-related serologies have been ordered as well as CMV serology. Await hematology opinion. Thank you for the kind referral. SUDEEP MINAYA M.D. [id number]
[2017-03-24 06:09] LABS: SERUM IRON 186 ug/dL (38-169); TOTAL IRON BINDING CAPACITY < 203 ug/dL (250-450); UIBC < 17 ug/dL (111-343)
[2017-03-24] MEDS ORDERED: LEVOTHYROXINE NA 112 MCG TABLET (FP) PO SCH (07:00)
[2017-03-24 07:48] LABS: MCH 35.5 pg (25.7-33.7); MCHC 36.4 g/dl (32.0-35.9); MEAN CELL VOLUME 97.5 fl (80-96); MEAN PLT VOLUME 11.1 fl (7.5-11.1); PLATELET COUNT 75 K/MM3 (134-434)
[2017-03-24 08:11] LABS: WHITE BLOOD COUNT 1.5 K/mm3 (4.0-10.0)
[2017-03-24 08:13] LABS: ALBUMIN 3.7 g/dl (3.4-5.0); ANION GAP 9 (8-16); CALCIUM 8.5 mg/dL (8.5-10.1); CO2 26 mmol/L (21-32); GLUCOSE,RANDOM 95 mg/dL (74-106)
[2017-03-24 08:16] LABS: ALK PHOS 33 U/L (45-117); BILIRUBIN,TOTAL 3.9 mg/dL (0.2-1.0); SGPT/ALT 93 U/L (12-78); TOT PROT 6.1 g/dl (6.4-8.2)
[2017-03-24 08:23] LABS: SGOT/AST 253 U/L (15-37)
[2017-03-24 09:27] LABS: TOTAL CELLS COUNTED 100
[2017-03-24 09:28] LABS: PLATELET ESTIMATE DECREASED (NORMAL)
[2017-03-24] MEDS: CYANOCOBALAMIN (VITAMIN B-12) 1000 MCG/1 ML VIAL IM SCH (09:59)
[2017-03-24] MEDS ORDERED: CYANOCOBALAMIN (VITAMIN B-12) 1000 MCG/1 ML VIAL IM SCH (10:00)
[2017-03-24 10:20] LABS: BILIRUBIN,DIRECT 0.6 mg/dL (0.0-0.2)
--- NOTE | 2017-03-24 10:34 | PN ---
Progress Note, Physician Chief Complaint: ID NO fever chills or systemic complaints Did complain of weakness - Current Medication List Current Medications: Active Medications Cyanocobalamin (Vitamin B12 Injection -) 1,000 mcg IM DAILY [facility] Last Admin: 03/24/17 09:59 Dose: 1,000 mcg Levothyroxine Sodium (Synthroid -) 112 mcg PO DAILY@0700 [facility] Last Admin: 03/24/17 07:03 Dose: Not Given - Objective Vital Signs: Vital Signs Temperature 99.1 F 03/24/17 09:00 Pulse Rate 103 H 03/24/17 09:00 Respiratory Rate 20 03/24/17 09:00 Blood Pressure 137/83 03/24/17 09:00 O2 Sat by Pulse Oximetry (%) 99 03/24/17 09:00 Constitutional: Yes: Well Nourished, No Distress Eyes: Yes: WNL, Conjunctiva Clear HENT: Yes: WNL, Atraumatic Neck: Yes: WNL, Supple Cardiovascular: Yes: Regular Rate and Rhythm, S1, S2. No: Murmur Respiratory: Yes: WNL, Regular, CTA Bilaterally Gastrointestinal: Yes: WNL, Normal Bowel Sounds, Soft. No: Splenomegaly, Tenderness, Epigastrium Edema: No Labs: CBC, BMP 03/24/17 06:30 03/24/17 06:30 INR, PTT INR 1.01 (0.82-1.09) 03/22/17 19:30 Fibrinogen 223.0 mg/dL (238-498) L 03/22/17 14:50 Assessment/Plan Laboratory Tests 03/22/17 03/22/17 03/22/17 12:30 14:50 19:30 WBC Hgb Hct Plt Count INR 1.01 BUN Creatinine Creat Clearance w eGFR Total Bilirubin Direct Bilirubin GGT AST ALT Alkaline Phosphatase LD Total 7626 H Serum Folate Urine Protein Urine RBC Urine WBC A. phagocytophilum DNA Babesia Performed By Babesia microti IgG Ab Babesia microti IgM Ab CMV IgM Ab HIV 1&2 Antibody Screen Negative HIV P24 Antigen Negative 03/22/17 03/23/17 03/23/17 21:10 00:20 00:20 WBC Hgb Hct Plt Count INR BUN Creatinine Creat Clearance w eGFR Total Bilirubin Direct Bilirubin GGT AST ALT Alkaline Phosphatase LD Total Serum Folate 13 Urine Protein Negative Urine RBC <1 Urine WBC 1 A. phagocytophilum DNA Pending Babesia Performed By Pending Babesia microti IgG Ab Pending Babesia microti IgM Ab Pending CMV IgM Ab Pending HIV 1&2 Antibody Screen HIV P24 Antigen 03/24/17 03/24/17 06:30 06:30 WBC 1.5 L* Hgb 8.2 L D Hct 22.4 L Plt Count 75 L INR BUN 9 Creatinine 1.0 Creat Clearance w eGFR > 60 Total Bilirubin 3.9 H Direct Bilirubin 0.6 H GGT 17 AST 253 H ALT 93 H Alkaline Phosphatase 33 L LD Total Serum Folate Urine Protein Urine RBC Urine WBC A. phagocytophilum DNA Babesia Performed By Babesia microti IgG Ab Babesia microti IgM Ab CMV IgM Ab HIV 1&2 Antibody Screen HIV P24 Antigen Assessment Pancytopenia Elevated LDH BIlirubin ? hemolysis Looks well States has not had a CBC done as outpatient in several years ?? Previous heme issue thought Tapazole related. Low B 12 noted. CBC diff not helpful no blasts noted. Consider primary hematologic disease vs infectious etiology Viral EBV CMV HIV Anaplasmosis Babesia. Plan Observe off antibiotics Dr Cary to see today and possible bone marrow Serology will take some time to come back but can get Babesia smear Radha DRAKE Plan
--- NOTE | 2017-03-24 11:16 | CON.GI ---
Consult Consult Specialty:: Gastroenterology Reason for Consultation:: Pancytopenia - History of Present Illness History of Present Illness: 41 year old male with a past medical history of hyperthyroidism s/p radioactive iodine therapy on synthroid presents to the hospital for 2 days of weakness and subjective fevers. He states that he was first diagnosed with hyperthyroidism, he was treated with methimazole. After several treatments, he states that they found him pancytopenic, so they discontinued methimazole and received a radioactive iodine treatment followed by synthroid outpatient treatment. He was found to have a vitamin B12 deficiency back in 2013 and treated him with vitamin B12, which he received several times as an outpatient, but has not taken any B12 in a long time. Patient states that he has not had nausea, vomiting, diarrhea. States that he eats a healthy diet and denies alcohol/ smoking/illicit drugs. Denies history of HIV, hepatitis. Allergies: zosyn Smoking/Drinking: none - History Source History Provided By: Patient Limitations to Obtaining History: No Limitations - Past Medical History Endocrine: Yes: Hyperthyroidism. No: Letcher's Disease, Aguanga's Disease, Diabetes Insipidus, Diabetes Mellitus, Hyperparathyroidism, Hypothyroidism, Osteopenia, SIADH, Other Additional Medical History: Hyperthyroid - Past Surgical History Past Surgical History: Yes: Arthrosocopy. No: None, AAA Repair, AICD, Amputation, Appendectomy, AV Fistula/Graft, Bariatric Surgery, Breast Biopsy, Bypass, CABG, Carotid Endarterectomy, Cataract Removal, Cholecystectomy, Colectomy, Colonoscopy, Colostomy, Craniotomy, , Cystectomy, Hernia Repair, Hysterectomy, Ileal Conduit, Ileosotomy, Joint Replacement, Kidney Transplant, Laminectomy, Liver Transplant, Mastectomy, Nephrectomy, Oopherectomy , Orchiectomy, Permanent Pacemaker, Prostatectomy, Splenectomy, Stent, Thoracotomy, TURP, Tonsillectomy, Tubal Ligation, Upper Endoscopy, Valve Replacement, Vasectomy, Vein Stripping/Ligation - Alcohol/Substance Use Hx Alcohol Use: No - Smoking History Smoking history: Never smoked Have you smoked in the past 12 months: No Aproximately how many cigarettes per day: 0 Home Medications - Allergies Allergies/Adverse Reactions: Allergies Allergy/AdvReac Type Severity Reaction Status Date / Time piperacillin sodium Allergy Verified 03/22/17 12:06 [From Zosyn] tazobactam sodium Allergy Verified 03/22/17 12:06 [From Zosyn] - Home Medications Home Medications: Ambulatory Orders Levothyroxine [Synthroid -] 125 mcg PO DAILY 03/22/17 Family Disease History - Family Disease History Family Disease History: Heart Disease: Father ([place] x 2) Review of Systems - Review of Systems Constitutional: reports: Malaise Eyes: reports: No Symptoms HENT: reports: No Symptoms Neck: reports: No Symptoms Cardiovascular: reports: No Symptoms. denies: Chest Pain, Palpitations Respiratory: reports: No Symptoms. denies: Cough, SOB Gastrointestinal: reports: Abdominal Pain. denies: Bloating, Constipation, Diarrhea, Dysphagia, Indigestion, Melena, Nausea, Rectal Bleeding, Vomiting, Vomiting Blood Genitourinary: reports: No Symptoms Musculoskeletal: reports: No Symptoms Integumentary: reports: No Symptoms Neurological: reports: No Symptoms Endocrine: reports: No Symptoms Hematology/Lymphatic: reports: No Symptoms Psychiatric: reports: No Symptoms Physical Exam-GI Vital Signs: Vital Signs Temperature 99.1 F 03/24/17 09:00 Pulse Rate 103 H 03/24/17 09:00 Respiratory Rate 20 03/24/17 09:00 Blood Pressure 137/83 03/24/17 09:00 O2 Sat by Pulse Oximetry (%) 99 03/24/17 09:00 Constitutional: Yes: No Distress, Calm Eyes: Yes: EOM Intact, Sclera Icterus HENT: Yes: Atraumatic, Normocephalic Neck: Yes: Supple, Trachea Midline Cardiovascular: Yes: Tachycardia, Murmur (mild systolic murmur appreciated), S1 , S2. No: Gallop, Rub Respiratory: Yes: Regular, CTA Bilaterally. No: Rales, Rhonchi, SOB, Stridor, Wheezes Gastrointestinal Inspection: No: Ascites, Distention, Hernia, Scars ...Auscultate: Yes: Normoactive Bowel Sounds ...Palpate: No: Firm/Rigid, Guarding, Hepatomegaly, Mass, Pulsatile Mass, Soft, Tenderness ...Percussion: No: Dullness, Fluid Wave, Tympanitic Musculoskeletal: Yes: WNL Extremities: Yes: WNL Edema: No Peripheral Pulses WNL: Yes Integumentary: Yes: WNL Neurological: Yes: Alert, Oriented, Cran Nerves II-XII Intact ...Motor Strength: WNL Psychiatric: Yes: Alert, Oriented Labs: CBC, BMP 03/24/17 06:30 03/24/17 06:30 INR, PTT INR 1.01 (0.82-1.09) 03/22/17 19:30 Fibrinogen 223.0 mg/dL (238-498) L 03/22/17 14:50 Problem List - Problems (1) Pancytopenia with fever Code(s): D61.818 - OTHER PANCYTOPENIA R50.81 - FEVER PRESENTING WITH CONDITIONS CLASSIFIED ELSEWHERE (2) Abnormal LFTs (liver function tests) Code(s): R79.89 - OTHER SPECIFIED ABNORMAL FINDINGS OF BLOOD CHEMISTRY Assessment/Plan Assessment/Plan: 41 year old male pmh hyperthyroidism on synthroid s/p radioactive iodine tx seen by GI for elevated transaminases and indirect hyperbilirubinemia in the setting of anemia, pancytopenia #Anemia: patient has a history of confirmed pernicious anemia on a previous admission by intrinsic factor antibodies -hemolysis (elevated LDH, reticulocytes) likely 2/2 megaloblasts sequestered by spleen (splenomegaly on CT) -iron is elevated in the setting of hemolysis -check fasting iron/TIBC levels to assess for hemochromatosis -order serum ceruloplasmin, copper levels levels to assess 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 I reviewed the resident's note and discussed the case with the resident. I agree with the resident's findings and plan as documented. SUBJECTIVE: OBJECTIVE: ASSESSMENT AND PLAN:
[2017-03-24 13:22] LABS: CPK 80 IU/L (39-308)
[2017-03-24 14:05] VITALS: BP 137/91; PULSE 104; TEMP 98.7
--- NOTE | 2017-03-24 15:09 | PN ---
Teaching Attending Note Name of Resident: Anthony Causey ATTENDING PHYSICIAN STATEMENT I saw and evaluated the patient. I reviewed the resident's note and discussed the case with the resident. I agree with the resident's findings and plan as documented. SUBJECTIVE: 41M admitted for evaluation of generalized malaise and subjective fevers Noted to be pancytopenic, B12 deficient (untreated with poor medical follow-up) along with indirect hyperbilirubinemia, anemia and elevated transaminases OBJECTIVE: Anicteric Hrt: tachycardic rate, reg rhythm. + systolic murmur at the RSB Lungs: CTA B/L Abd: sft, +BS, NT/ND, no HSM Ext: No LE edema ASSESSMENT/Plan Pancytopenia, hemolytic anemia: Given previous history with similar presentation in 2014 in setting of profound b12 deficiency, ? if current clinical picture secondary to non-compliance with B12 therapy or ? alternate hematologic process AST and ALT are elevated with AST being greater proportion. Can be seen in hemolysis but will screen for infectious hepatitis, checking serum copper, 24 hour urine for copper and check serum ceruloplasmin to screen for praveen's. Would think that if this was hemolysis in the setting of praveen's there would be more of an appropriate reticulocyte response. Liver chemistries also improving without intervention aside from Vitamin B12 injection. Serum iron elevated however likely falsely elevated in setting of hemolysis. Needs repeating once acute issues are resolved Needs Hematology evaluation When acute issues are resolved in setting of suspected pernicious anemia, EGD could be considered as an outpatient to exclude any intraluminal gastric pathology. can f/u with Dr. Bro in office. Dr. Bro's office information placed in discharge plan
--- NOTE | 2017-03-24 17:34 | DS ---
Physical Exam: SUBJECTIVE: Patient seen and examined OBJECTIVE: Vital Signs Period Temp Pulse Resp BP Sys/[place] Pulse Ox Last 24 Hr 98.7 F-99.1 F 102-107 18-20 127-137/78-91 97-99 PHYSICAL EXAM GENERAL: The patient is awake, alert, and fully oriented, in no acute distress. HEAD: Normal with no signs of trauma. EYES: PERRL, extraocular movements intact, sclera anicteric, conjunctiva clear. ENT: Ears normal, nares patent, oropharynx clear without exudates, moist mucous membranes. NECK: Trachea midline, full range of motion, supple. LUNGS: Breath sounds equal, clear to auscultation bilaterally, no wheezes, no crackles, no accessory muscle use. HEART: Regular rate and rhythm, S1, S2 without murmur, rub or gallop. ABDOMEN: Soft, nontender, nondistended, normoactive bowel sounds, no guarding, no rebound, no hepatosplenomegaly, no masses. EXTREMITIES: 2+ pulses, warm, well-perfused, no edema. NEUROLOGICAL: Cranial nerves II through XII grossly intact. Normal speech, gait not observed. PSYCH: Normal mood, normal affect. SKIN: Warm, dry, normal turgor, no rashes or lesions noted. LABS Laboratory Results - last 24 hr 03/23/17 03/24/17 03/24/17 00:20 06:30 06:30 WBC 1.5 L* RBC 2.30 L Hgb 8.2 L D Hct 22.4 L MCV 97.5 H MCH 35.5 H MCHC 36.4 H RDW 23.0 H Plt Count 75 L MPV 11.1 Total Counted 100 Neutrophils % Y Neutrophils % (Manual) 69 Lymphocytes % Y Lymphocytes % (Manual) 24 Monocytes % (Manual) 6 D Eosinophils % (Manual) 1 Hypersegmented Neuts Cancelled Hypochromia Cancelled Toxic Granulation Cancelled Dohle Bodies Cancelled Platelet Estimate Decreased Polychromasia Cancelled Poikilocytosis Cancelled Basophilic Stippling Cancelled Anisocytosis Cancelled Microcytosis Cancelled Macrocytosis Cancelled Spherocytes Cancelled Siderocytes Cancelled Sickle Cells Cancelled Target Cells Cancelled Tear Drop Cells Cancelled Ovalocytes Cancelled Stomatocytes Cancelled Helmet Cells Cancelled Awad-Ke[place] Bodies Cancelled Raritan Rings Cancelled Angella Cells Cancelled Acanthocytes (Spur) Cancelled Rouleaux Cancelled Fragmented RBCs Cancelled Schistocytes Cancelled Morphology Comment Cancelled Sodium 137 Potassium 4.1 Chloride 102 Carbon Dioxide 26 Anion Gap 9 BUN 9 Creatinine 1.0 Creat Clearance w eGFR > 60 Random Glucose 95 Calcium 8.5 Iron 186 H TIBC < 203 L Iron Saturation > 92 H Total Bilirubin 3.9 H Direct Bilirubin 0.6 H GGT 17 AST 253 H ALT 93 H Alkaline Phosphatase 33 L Creatine Kinase 80 Total Protein 6.1 L Albumin 3.7 03/24/17 08:30 WBC RBC Hgb Hct MCV MCH MCHC RDW Plt Count MPV Total Counted Neutrophils % Neutrophils % (Manual) Lymphocytes % Lymphocytes % (Manual) Monocytes % (Manual) Eosinophils % (Manual) Hypersegmented Neuts Hypochromia Toxic Granulation Dohle Bodies Platelet Estimate Polychromasia Poikilocytosis Basophilic Stippling Anisocytosis Microcytosis Macrocytosis Spherocytes Siderocytes Sickle Cells Target Cells Tear Drop Cells Ovalocytes Stomatocytes Helmet Cells Awad-[place] Bodies Raritan Rings Angella Cells Acanthocytes (Spur) Rouleaux Fragmented RBCs Schistocytes Morphology Comment Sodium Potassium Chloride Carbon Dioxide Anion Gap BUN Creatinine Creat Clearance w eGFR Random Glucose Calcium Iron TIBC Iron Saturation Total Bilirubin Direct Bilirubin Cancelled GGT Cancelled AST ALT Alkaline Phosphatase Creatine Kinase Total Protein Albumin HOSPITAL COURSE: Date of Admission:03/22/17 Date of Discharge: 03/24/17 Discharge Summary Reason For Visit: PANCYTOPENIA WITH FEVER Current Active Problems Pancytopenia with fever (Acute) Condition: Fair - Instructions Referrals: Uri Bro MD [Staff Physician] - Venu Florentino [Primary Care Provider] - - Home Medications Comprehensive Discharge Medication List: Ambulatory Orders Levothyroxine [Synthroid -] 125 mcg PO DAILY 03/22/17
--- NOTE | 2017-03-24 18:11 | PN ---
Progress Note, Physician Chief Complaint: malaise and weakness X 2 days History of Present Illness: 41 y/o male w hx hyperthyroidism Rx w methimazole and HUBBARD 2013 , hx low B12/ Pernicious Anemia at that time presenting w low blood counts ; pt took B12 for a while then stopped ;a w/u that included anti -parietal cell and intrinsic factor ab's were reportedly positive c/w PA. Pt doing well till recently when he developed fever/chills/malaise/weakness several days ago ; found to have pancytopenia ,transfused PC's and now feels better ; B12 level was 60 . He was given B12 shot . He has evidence on a hemolytic process, macrocytosis, low retic count, mild splenomegaly , low WBC (nl diff) , low platelets which can all be c/w PA, although cannor r/o other additional hematologic entities.CT c/a /p showed only mild splenomagaly ; US abdo showed GB polyp , possible fatty liver, enlarged. - Current Medication List Current Medications: Active Medications Cyanocobalamin (Vitamin B12 Injection -) 1,000 mcg IM DAILY [facility] Last Admin: 03/24/17 09:59 Dose: 1,000 mcg Levothyroxine Sodium (Synthroid -) 112 mcg PO DAILY@0700 [facility] Last Admin: 03/24/17 07:03 Dose: Not Given - Objective Vital Signs: Vital Signs Temperature 98.7 F 03/24/17 14:02 Pulse Rate 104 H 03/24/17 14:02 Respiratory Rate 20 03/24/17 14:02 Blood Pressure 137/91 03/24/17 14:02 O2 Sat by Pulse Oximetry (%) 99 03/24/17 09:00 Constitutional: Yes: Well Nourished, No Distress, Calm Eyes: Yes: EOM Intact (pale conj.). No: WNL, Conjunctiva Clear, Cataracts, Diplopia, Occular Prosthesis, PERRL, Ptosis, Sclera Icterus, Tearing, Other HENT: Yes: WNL, Atraumatic, Normocephalic Neck: Yes: WNL, Supple, Trachea Midline Cardiovascular: Yes: WNL, Regular Rate and Rhythm Respiratory: Yes: WNL, Regular, CTA Bilaterally Gastrointestinal: Yes: WNL, Normal Bowel Sounds, Soft (mild hepatomegaly, splenic tip+) Musculoskeletal: Yes: WNL Extremities: Yes: WNL Edema: No Integumentary: Yes: WNL Neurological: Yes: WNL, Alert, Oriented ...Motor Strength: WNL Psychiatric: Yes: WNL, Alert, Oriented Labs: CBC, BMP 03/24/17 06:30 03/24/17 06:30 INR, PTT INR 1.01 (0.82-1.09) 03/22/17 19:30 Fibrinogen 223.0 mg/dL (238-498) L 03/22/17 14:50 Problem List - Problems (1) Pancytopenia with fever Code(s): D61.818 - OTHER PANCYTOPENIA R50.81 - FEVER PRESENTING WITH CONDITIONS CLASSIFIED ELSEWHERE (2) Abnormal LFTs (liver function tests) Code(s): R79.89 - OTHER SPECIFIED ABNORMAL FINDINGS OF BLOOD CHEMISTRY (3) Pancytopenia Code(s): D61.818 - OTHER PANCYTOPENIA (4) Pernicious anemia Code(s): D51.0 - VITAMIN B12 DEFIC ANEMIA DUE TO INTRINSIC FACTOR DEFICIENCY Assessment/Plan 41 y/o w pancytopenia , 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 He can be d/c'd on FA 1mg qd and f/u in office at 1pm ; will see if counts starting to recover ; if not , then will do BM exam ; will finish other serologic w/u if necessary for Kelehci's disease and PA; will give another B12 at that time ; He should f/u w GI for the endoscopies. To follow LFT's and may need additional evaluations for this.He currently feels better overall and can be d/c'd to be followed closely as outpatient. I spoke w pt and spouse
== END 2017-03-24 18:40 | disposition home or self-care (01) | DRG 660 ==
LOC: JER 12:02 → JERBED 16:34 → UNDOADMIN 17:35 → JERBED 17:35 → J7W 20:09
PROVIDERS: ADMIT Internal Medicine; ATTEND Nurse Practitioner Acute Care
PROC: 30253H1 (ICD-10-PCS; principal; 2017-03-22)
DX: D61.818 Other pancytopenia (principal); D51.0 Vitamin B12 deficiency anemia due to intrinsic factor deficiency; D70.9 Neutropenia, unspecified; R50.81 Fever presenting with conditions classified elsewhere; E89.0 Postprocedural hypothyroidism; K76.0 Fatty (change of) liver, not elsewhere classified; Z80.0 Family history of malignant neoplasm of digestive organs; R74.0 Nonspecific elevation of levels of transaminase and lactic acid dehydrogenase [LDH]; Z91.14 Patient's other noncompliance with medication regimen; R16.1 Splenomegaly, not elsewhere classified
CPT/HCPCS: 36415; 36430; 36511; 71010-TC; 71260-TC; 74177-TC; 76705-TC; 80053; 81003; 81015; 82248; 82525; 82607; 82728; 82746; 82930; 82977; 83010; 83540; 83550; 83605; 83615; 83735; 84439; 84443; 84481; 85025; 85027; 85044; 85384; 85610; 86645; 86753; 86803; 86850; 86900; 86901; 86922; 87040; 87086; 87207; 87389; 87497; 87804; 93005; 93010; 99283-25; P9038; P9058